=== PATIENT | male | born 1950 | race Caucasian/White ===

== ENCOUNTER 2021-11-20 08:13 | Outpatient (CLI) | payer MEDICARE, OTHER ==
[2021-11-20 18:25] LABS: SARS-CoV-2 PCR by NAA Not Detected (NotDetected)
== END 2021-11-20 08:14 | disposition home or self-care (01) ==
LOC: LABBT 08:13
PROVIDERS: ATTEND Ophthalmology Retina Specialist
DX: Z01.812 Encounter for preprocedural laboratory examination (principal); H43.391 Other vitreous opacities, right eye; Z20.822 Contact with and (suspected) exposure to COVID-19
CPT/HCPCS: U0003; U0005

== ENCOUNTER 2021-11-25 06:24 | Day surgery (SDC) | payer MEDICARE ==
[2021-11-24 11:05] VITALS: BMI 34.4
[2021-11-25] MEDS ORDERED: EPINEPHrine 0.3 MG in Ophthalmic Irrigation Solution 500 ML IRR SCH ×2 (06:30→06:45)
[2021-11-25] MEDS ORDERED: Cyclopentolate W/ Phenylephrin 40 DROP/2 ML BOT ONE ×2 (06:30→06:31)
[2021-11-25] MEDS ORDERED: Cyclopentolate 1% Opth Drop 2 ML BOT ONE (06:32)
[2021-11-25] MEDS ORDERED: Phenylephrine 2.5% Ophth Soln 5 ML BOT ONE (06:32)
[2021-11-25] MEDS ORDERED: Fentanyl 100 MCG/2 ML VIAL ONE (07:31)
[2021-11-25] MEDS ORDERED: PROPOFOL 20 ML ONE (07:31)
[2021-11-25] MEDS ORDERED: Midazolam HCl 2 mg/2 ml Vial ONE (07:31)
[2021-11-25] MEDS ORDERED: Bupivacaine PF 0.75% SDV 10 ML ONE (07:57)
[2021-11-25] MEDS ORDERED: Maxitrol 0.1% Opth Oint 3.5 GM TUBE ONE (07:57)
[2021-11-25] MEDS ORDERED: Lidocaine 4% PF 5 ML AMP ONE (07:57)
[2021-11-25] MEDS ORDERED: Triamcinolone 40 MG/ML VIAL ONE (07:57)
== END 2021-11-25 09:16 | disposition home or self-care (01) ==
LOC: SDC 06:24
PROVIDERS: ATTEND Ophthalmology Retina Specialist
PROC: 08T43ZZ Resection of Right Vitreous, Percutaneous Approach (ICD-10-PCS; principal; 2021-11-25)
DX: H43.391 Other vitreous opacities, right eye (principal); I10 Essential (primary) hypertension; E78.5 Hyperlipidemia, unspecified; F17.200 Nicotine dependence, unspecified, uncomplicated; Z79.82 Long term (current) use of aspirin; Z79.899 Other long term (current) drug therapy; Z88.0 Allergy status to penicillin
CPT/HCPCS: J0171; J2250; J2704; J3010; J3301; J3490